=== PATIENT | female | born 1940 | race Caucasian/White ===

== ENCOUNTER 2016-09-27 09:33 | Outpatient (CLI) | payer MEDICARE, OTHER ==
[2015-04-17 10:58] VITALS: BP 152/76
[2016-09-27 09:48] LABS: BASOPHILS % 0.4 (0.0-1.5); EOSINOPHILS % 1.1 % (0.0-6.8); MEAN CORPUSCULAR HEMOGLOBIN 30.3 pg (28.0-34.0); MONOCYTES % 5.4 % (0.0-11.0); NEUTROPHILS # 6.9 # k/uL (1.4-7.7)
[2016-09-27 10:14] LABS: eGFR (African) > 60; eGFR (Non-African) > 60
== END 2016-09-27 09:34 ==
LOC: LAB 09:33
PROVIDERS: ATTEND Family Medicine
DX: I10 Essential (primary) hypertension (principal); E78.00 Pure hypercholesterolemia, unspecified
CPT/HCPCS: 36415; 80053; 80061; 85025

== ENCOUNTER 2016-10-08 14:18 | Outpatient (CLI) | payer MEDICARE, OTHER ==
[2015-04-17 10:58] VITALS: BP 152/76
== END 2016-10-08 14:20 ==
LOC: POD 14:18
PROVIDERS: ATTEND Podiatrist
DX: B35.1 Tinea unguium (principal); M79.674 Pain in right toe(s); M79.675 Pain in left toe(s); L84 Corns and callosities
CPT/HCPCS: 11721; G0463

== ENCOUNTER 2016-10-11 09:30 | Outpatient (CLI) | payer MEDICARE, OTHER ==
[2015-04-17 10:58] VITALS: BP 152/76
--- NOTE | 2016-10-12 10:54 | OP Clinic Progress Note ---
REFERRING PHYSICIAN: Dr. Rah Gloria REASON FOR VISIT: Shirlene Hatch returns for follow up of seronegative rheumatoid arthritis. She is now 75. I have been following her for the past 3 years. She tells me she is doing well. She is not having any significant joint swelling, warmth, tenderness, or pain. She has had no new medical problems. Morning stiffness is less than 15 minutes and pain maybe 1 to 2 over 10 in the hands and lower back. PAST MEDICAL HISTORY: 1. Hypertension. 2. Peptic ulcer disease. 3. Clinical nervous breakdown. 4. Hysterectomy. PRESENT MEDICATIONS: 1. Prednisone 2.5 mg twice a day. 2. Sertraline 20 mg daily. 3. Lisinopril 5 mg daily. 4. Haldol 5 mg daily. ALLERGIES: She reports allergies to penicillin. SOCIAL HISTORY: No smoking. No drinking. FAMILY HISTORY: Family history is negative from a rheumatological point of view. REVIEW OF SYSTEMS: No fevers, chills, sweats, chest pain, shortness of breath, cough, wheezing, nausea, vomiting and diarrhea. PHYSICAL EXAMINATION: GENERAL: She looks well. VITAL SIGNS: Weight: 171. Height: 5 feet 4 inches. BP: 130/60, P: 70, T: 97. HEENT: Grossly unremarkable. LUNGS: Clear bilaterally with no crackles or wheezing. HEART: Regular rhythm. ABDOMEN: Soft and nontender. VASCULAR: No edema or cyanosis. PERIPHERAL JOINTS: Changes of OA to the DIPs and PIPs but no tenderness or deformities. She has no synovitis at the MCPs, wrists, elbows, shoulder, hips, knees, ankles and feet. She is using a cane but otherwise her gait is non- antalgic. DIAGNOSTIC STUDIES: Review of past data also shows she had labs on September 27 which was unremarkable with a normal CBC and CMP. IMPRESSION: 1. Seronegative rheumatoid arthritis, doing well. 2. Osteoarthritis, stable. PLAN: 1. We will continue her present medications. I refilled her prednisone 2.5 mg twice a day. 2. I will see her back in 6 months. cc: Dr. Rah BULLARD
== END 2016-10-11 09:32 ==
LOC: RHEU 09:30
PROVIDERS: ATTEND Internal Medicine
DX: M06.09 Rheumatoid arthritis without rheumatoid factor, multiple sites (principal); I10 Essential (primary) hypertension
CPT/HCPCS: 99213; G0463

== ENCOUNTER 2016-12-13 14:22 | Outpatient (CLI) | payer MEDICARE, OTHER ==
[2015-04-17 10:58] VITALS: BP 152/76
== END 2016-12-13 14:33 ==
LOC: POD 14:22
PROVIDERS: ATTEND Podiatrist
DX: L89.891 Pressure ulcer of other site, stage 1 (principal)
CPT/HCPCS: 97597; G0463

== ENCOUNTER 2017-01-03 13:20 | Outpatient (CLI) | payer MEDICARE, OTHER ==
[2015-04-17 10:58] VITALS: BP 152/76
== END 2017-01-03 13:21 ==
LOC: POD 13:20
PROVIDERS: ATTEND Podiatrist
DX: M20.42 Other hammer toe(s) (acquired), left foot (principal); L89.891 Pressure ulcer of other site, stage 1
CPT/HCPCS: G0463

== ENCOUNTER 2017-01-17 14:05 | Outpatient (CLI) | payer MEDICARE, OTHER ==
[2015-04-17 10:58] VITALS: BP 152/76
== END 2017-01-17 14:06 ==
LOC: POD 14:05
PROVIDERS: ATTEND Podiatrist
DX: L89.891 Pressure ulcer of other site, stage 1 (principal); M20.42 Other hammer toe(s) (acquired), left foot
CPT/HCPCS: G0463

== ENCOUNTER 2017-01-27 13:34 | Outpatient (CLI) | payer MEDICARE, OTHER ==
[2015-04-17 10:58] VITALS: BP 152/76
[2017-01-27 14:22] LABS: eGFR (African) > 60; eGFR (Non-African) > 60
== END 2017-01-27 13:35 ==
LOC: LAB 13:34
PROVIDERS: ATTEND Family Medicine
DX: I10 Essential (primary) hypertension (principal); D51.9 Vitamin B12 deficiency anemia, unspecified
CPT/HCPCS: 36415; 80048; 82607

== ENCOUNTER 2017-01-29 09:27 | Outpatient (CLI) | payer MEDICARE, OTHER ==
[2015-04-17 10:58] VITALS: BP 152/76
--- NOTE | 2017-01-29 13:43 | OP Clinic Progress Note ---
REASON FOR VISIT: This 76-year-old lady has severe bilateral hearing loss. She wears a hearing aid in the right ear. She has a disequilibrium history. With otoscopy, the left ear has a marked posterior collapse of the eardrum with a bony erosion. Anteriorly, the eardrum is intact. There is a significant amount of debris built up. There is a tiny 1 mm area of bone exposure in the posterior retraction pocket or transcanal endaural-type of mastoidectomy. The history is not clear in that regard. With tuning forks, every one of the attempts with a 512 tuning fork refers to the right ear, including on the left mastoid. 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 There was a significant amount of debris in that cavity and I cleaned it. In the right ear, there is a perforation in the posterior superior quadrant. It is wet and moist with some granulation tissue and I can see a metal prosthesis in that superior posterior quadrant. There is somewhat like a point lay ira ribbon stapes-type of prosthesis. A significant amount of debris and skin are cleaned from the right ear. Ciloxan Drops were lavaged. PLAN: With the ability of the patient, both with hearing and with her schizophrenia, she should begin to develop a plan for aural hygiene. It will take a little bit of time. I have asked her to use some Ciloxan drops in the right ear just once a day and I will recheck her in 2 weeks. I plan to be progressively trying to get the ear canals a little healthier. Specifically for the right ear , if it has gotten healthier and there is less debris in the ear, it will allow her to hear better with the hearing aid. Currently, I do not believe either ear needs surgery. cc: Dr. Rah BULLARD
== END 2017-01-29 09:30 ==
LOC: ENT 09:27
PROVIDERS: ATTEND Otolaryngology
DX: H90.5 Unspecified sensorineural hearing loss (principal); F20.9 Schizophrenia, unspecified
CPT/HCPCS: G0463

== ENCOUNTER 2017-02-12 14:39 | Outpatient (CLI) | payer MEDICARE, OTHER ==
[2015-04-17 10:58] VITALS: BP 152/76
--- NOTE | 2017-02-16 10:36 | OP Clinic Progress Note ---
REASON FOR VISIT: Shirlene is seen in follow up of bilateral mastoid ear cleanings. She has used Ciloxan drops. Symptomatically, she both hears better and has had less pressure and discomfort in both ears. Both ears remain significantly improved. There is no drainage. PLAN: I did not see the need to debride and clean the ears today. I suggested that she use the drops less frequently at 2 or 3 drops in both ears once a week. I will see her back in about 6 weeks and check on the progress and see if the ears remain clean or whether they will need additional debridement. cc: Dr. Rah BULLARD
== END 2017-02-12 14:40 ==
LOC: ENT 14:39
PROVIDERS: ATTEND Otolaryngology
DX: H91.93 Unspecified hearing loss, bilateral (principal)
CPT/HCPCS: G0463

== ENCOUNTER 2017-02-14 13:38 | Outpatient (CLI) | payer MEDICARE, OTHER ==
[2015-04-17 10:58] VITALS: BP 152/76
== END 2017-02-14 13:40 ==
LOC: POD 13:38
PROVIDERS: ATTEND Podiatrist
DX: L89.892 Pressure ulcer of other site, stage 2 (principal)
CPT/HCPCS: G0463

== ENCOUNTER 2017-03-14 13:38 | Outpatient (CLI) | payer MEDICARE, OTHER ==
[2015-04-17 10:58] VITALS: BP 152/76
== END 2017-03-14 13:40 ==
LOC: POD 13:38
PROVIDERS: ATTEND Podiatrist
DX: B35.1 Tinea unguium (principal); M79.674 Pain in right toe(s); M79.675 Pain in left toe(s)
CPT/HCPCS: 11721; G0463

== ENCOUNTER 2017-03-26 13:39 | Outpatient (CLI) | payer MEDICARE, OTHER ==
[2015-04-17 10:58] VITALS: BP 152/76
--- NOTE | 2017-03-27 09:54 | OP Clinic Progress Note ---
REASON FOR VISIT: This 76-year-old lady is seen with bilateral ear canal and hearing losses. The left ear has got a modified radial mastoidectomy by erosion. The right ear has a hearing aid. The eardrum appears to be intact. The hearing aid itself is burrowing a hole in the ear canal. Under the microscope, I debrided and cleaned both ears. I picked squamous debris out of the bone of the ear canal sucked some particles out of it. Triple antibiotic ointment is applied in this. PLAN: Overall, there is improvement in both ears. Progressively, there is a little life coming back into the skin of the ear canal tissues and in the mastoid cavity in the left ear. The plan for the current period of time is to intermittently debride the ears perhaps once a month and try to restore some of the health of the tissue of the ear canals and simply see how far we get. I do not think drops are really going to particularly help at this level, but simply intermittent debridement. I will see her back in about a month. She does feel like she is able to hear better and the hearing aid functions better on that right side and she has less ear aching and overall sees some improvement that she is not quite able to verbalize. cc: Dr. Rah BULLARD
== END 2017-03-26 13:40 ==
LOC: ENT 13:39
PROVIDERS: ATTEND Otolaryngology
DX: H91.93 Unspecified hearing loss, bilateral (principal)
CPT/HCPCS: 69210; G0463

== ENCOUNTER → 2017-04-11 | Outpatient (CLI) | payer MEDICARE, OTHER ==
[2015-04-17 10:58] VITALS: BP 152/76
--- NOTE | 2017-04-11 11:13 | OP Clinic Progress Note ---
REASON FOR VISIT: Shirlene Hatch returns for follow up on her seronegative rheumatoid arthritis of multiple joints. She is doing well. She is not having any significant joint swelling, warmth, tenderness, morning stiffness, or pain. No new deformities. She did fall at home but did not injure herself. She has done remarkably well on low-dose prednisone 2.5 mg twice a day. PAST MEDICAL HISTORY: 1. Hypertension. 2. Peptic ulcer disease. 3. Hysterectomy. MEDICATIONS: 1. Prednisone 2.5 mg twice a day. 2. Sertraline 100 mg daily. 3. Lisinopril 5 mg daily. 4. Haldol 5 mg daily. ALLERGIES: Penicillin. SOCIAL HISTORY: No smoking. No drinking. REVIEW OF SYSTEMS: No fevers, chills, sweats, chest pain, shortness of breath, cough, wheezing, nausea, vomiting, diarrhea, numbness or tingling of extremities, skin rashes or nodules. PHYSICAL EXAMINATION: GENERAL: On exam, she looks well. VITAL SIGNS: Weight: 172. T: 96.9, R: 20, heart rate of 77, BP: 140/60. HEENT: Grossly unremarkable. LUNGS: Clear. HEART: Regular rhythm. ABDOMEN: Soft. VASCULAR: No edema or cyanosis. SKIN: No synovitis at the DIPs, PIPs, MCPs, wrists, elbows, shoulders, hips, knees, ankles, and feet. IMPRESSION: Seronegative rheumatoid arthritis. Doing well. PLAN: Continue present regimen. No need for labs today. I will see her back in 6 months. Thank you very much. cc: Dr. Rah BULLARD
== END ==
LOC: RHEU 08:40
PROVIDERS: ATTEND Internal Medicine
DX: M06.09 Rheumatoid arthritis without rheumatoid factor, multiple sites (principal)
CPT/HCPCS: 99214; G0463

== ENCOUNTER 2017-04-16 09:31 | Outpatient (CLI) | payer MEDICARE, OTHER ==
[2015-04-17 10:58] VITALS: BP 152/76
--- NOTE | 2017-04-16 15:21 | OP Clinic Progress Note ---
REASON FOR VISIT: Shirlene is a 76-year-old lady seen in follow up of bilateral severe problems with otitis externa, Eustachian tube dysfunction, and bilateral ear cholesteatomas. She is seen mostly for maintenance. She wears hearing aids and she has infected debris in her attic retraction pockets in both ears. These have been repetitively cleaned. Progressively, there is less ulceration. There is less granulation tissue and there is less dried purulence. The patient has enough clinical hearing loss that she is still going to need to continue using the hearing aids, although certainly, continues to be part of the disease process. Under the microscope, both ears were debrided and cleaned with MicroPicks. Some bacitracin ointment was placed and I placed Ciloxan drops in addition. PLAN: Patient will return in 1 month. I will try to work with her next time to see if she might be able to begin some low level of care for the ears, such as putting a type of ear drop in the ears. In a way, it is almost impossible to cure the problem on a permanent basis secondary to the patient needing the hearing aids and these contributing to smouldering chronic infection in the cholesteatoma pockets. She will still need some intermittent debridement and care under a microscope. cc: Dr. Rah BULLARD
== END 2017-04-16 09:40 ==
LOC: ENT 09:31
PROVIDERS: ATTEND Otolaryngology
DX: H91.93 Unspecified hearing loss, bilateral (principal); H71.93 Unspecified cholesteatoma, bilateral
CPT/HCPCS: 69220

== ENCOUNTER 2017-05-21 10:41 | Outpatient (CLI) | payer MEDICARE, OTHER ==
[2015-04-17 10:58] VITALS: BP 152/76
--- NOTE | 2017-05-22 13:51 | OP Clinic Progress Note ---
REASON FOR VISIT: This 76-year-old lady is seen with bilateral ear canal infections, otitis media , and a profound hearing loss. She has no hearing at all in her left ear by history. The left ear particularly had had several surgeries. I have debrided and cleaned these ears under the microscope several times and each time the ears have progressively improved the scabs, crusts, and exudates. Today, the perforation in the right ear with the prosthesis lying in it still remains much venetian blind cleaner. Initially, it had brown, gooey, gummy debris. The progressive debridement and cleanings and medications placed have progressively improved the milieu and I did that again today. The left ear also is improved. There are more cholesteatomatous, gummy, gooey changes in the posterior superior eroded retraction. Again, that is significantly improved with just much less debris and crusting. PLAN: The general aim is to progressively try to improve the general milieu in both ears. They need some physical debridement, I do not really believe drops will sufficiently rinse and clean these. The general milieu can continue to be improved with debridement and we will progressively expand the intervisit time length. It was a month last time and I will make it 6 weeks this time and hopefully, continue to improve the erosive milieu in both ears. She uses a hearing aid in the right ear. There is a bony exudate where it has rubbed. I re-picked some bone out of this and replaced antibiotic ointment over it. This site is slowly improving and there is starting to be a little skin over some of that raw bone and the overall bony eroded ulcer site has improved in the right ear canal where the hearing aid pressure eroded it. cc: Dr. Rah BULLARD
== END 2017-05-21 10:42 ==
LOC: ENT 10:41
PROVIDERS: ATTEND Otolaryngology
DX: H71.93 Unspecified cholesteatoma, bilateral (principal); H91.92 Unspecified hearing loss, left ear; H91.8X1 Other specified hearing loss, right ear
CPT/HCPCS: 69220; G0463

== ENCOUNTER 2017-06-03 10:40 | Outpatient (CLI) | payer MEDICARE, OTHER ==
[2015-04-17 10:58] VITALS: BP 152/76
== END 2017-06-03 10:50 ==
LOC: CARD 10:40
PROVIDERS: ATTEND Internal Medicine Cardiovascular Disease
DX: R00.8 Other abnormalities of heart beat (principal); R07.9 Chest pain, unspecified; I35.0 Nonrheumatic aortic (valve) stenosis; I10 Essential (primary) hypertension; E78.5 Hyperlipidemia, unspecified
CPT/HCPCS: G0463

== ENCOUNTER 2017-07-08 10:42 | Outpatient (CLI) | payer MEDICARE, OTHER ==
[2015-04-17 10:58] VITALS: BP 152/76
== END 2017-07-08 10:43 ==
LOC: CARD 10:42
PROVIDERS: ATTEND Internal Medicine Cardiovascular Disease
DX: R07.9 Chest pain, unspecified (principal); I35.0 Nonrheumatic aortic (valve) stenosis; I10 Essential (primary) hypertension; E78.5 Hyperlipidemia, unspecified
CPT/HCPCS: G0463

== ENCOUNTER 2017-07-09 13:59 | Outpatient (CLI) | payer MEDICARE, OTHER ==
[2015-04-17 10:58] VITALS: BP 152/76
--- NOTE | 2017-07-14 14:37 | OP Clinic Progress Note ---
REASON FOR VISIT: This 76-year-old lady is seen accompanied by her son. She has had bilateral stapes surgery. She also has otitis media and bilateral perforations. Although I do not have an audiogram by history, her left ear is a ear and does not hear. She wears a hearing aid in the right ear. It is a tight- fitting mold with the transmitter over and behind the ear. One of the issues is a bone ulceration in the lateral part of the ear canal on the bony part. The general concept is that it is a pressure ulcer from the deep portion of the hearing aid mold. This is debrided and cleaned and again, I picked bony spicules out of it and there is a squamous ulceration with squamous debris in it. Nevertheless, it is cooker cleaner than it used to be. Similarly, deeper in the ear on the right side, although the prosthesis is lying fallow in a large posterior perforation in the posterior third of the eardrum, currently I do not see active infection or drainage and that too is a generalized improvement. The skin of the ear canal is hard, dense, and packed in. I debrided and cleaned skin from around in the ear canal making this generally healthier. Clotrimazole lotion is placed over this area. In regards to the right ear, she and her will talk with "Gonzalez" from [facility] in [place] to see if the mold of the right ear hearing aid might be changed with less pressure in the inferior aspect. The left ear is debrided and cleaned. There is less squamous debris in the posterior/superior quadrant. It is almost less of a cholesteatoma this time than some squamous desquamation in the very posterior aspect in the attic that is not growing squamous cholesteatoma as it had been previously. There is a small amount of yellowish infection that has crystalized and this is all picked off and cleaned with very fine picks. Generally, this has improved. I put some Clotrimazole lotion on this area to help keep this cooker cleaner. PLAN: Shirlene and her son will visit with the hearing aid dealer, "Gonzalez," of [email or web address] in [place], [place]. I do not think drops really are going to significantly improve anything in either ear. I will reevaluate the issues in about 4 months. Overall, the general health of both ear canals and middle ears is fairly significantly improved. cc: Dr. Rah BULLARD
== END 2017-07-09 14:00 ==
LOC: ENT 13:59
PROVIDERS: ATTEND Otolaryngology
DX: H60.93 Unspecified otitis externa, bilateral (principal); H66.93 Otitis media, unspecified, bilateral; H72.93 Unspecified perforation of tympanic membrane, bilateral
CPT/HCPCS: G0463

== ENCOUNTER 2017-07-18 14:00 | Outpatient (CLI) | payer MEDICARE, OTHER ==
[2015-04-17 10:58] VITALS: BP 152/76
== END 2017-07-18 14:02 ==
LOC: POD 14:00
PROVIDERS: ATTEND Podiatrist
DX: L89.891 Pressure ulcer of other site, stage 1 (principal); M20.42 Other hammer toe(s) (acquired), left foot
CPT/HCPCS: G0463

== ENCOUNTER 2017-08-01 14:05 | Outpatient (CLI) | payer MEDICARE, OTHER ==
[2015-04-17 10:58] VITALS: BP 152/76
== END 2017-08-01 14:06 ==
LOC: POD 14:05
PROVIDERS: ATTEND Podiatrist
DX: L89.891 Pressure ulcer of other site, stage 1 (principal); M20.42 Other hammer toe(s) (acquired), left foot
CPT/HCPCS: G0463

== ENCOUNTER 2017-08-27 13:20 | Outpatient (CLI) | payer MEDICARE, OTHER ==
[2015-04-17 10:58] VITALS: BP 152/76
--- NOTE | 2017-09-01 09:10 | OP Clinic Progress Note ---
REASON FOR VISIT: This 76-year-old lady is seen sequentially for debriding and cleaning her ear canal on the right side which has a large bone exposure where her hearing aid gouges an ulcer. I have debrided and cleaned this ulcer several times under the microscope. This has reduced the size of the ulcer and the amount of inflammation. I discussed with the patient numerous times and with her son the last time that she needs to have the tip of the hearing aid changed or modified or altered to keep the pressure off on that right side. Their are simply working on this issue. On the left ear, she has some scabby and crustiness that comes from the totally eroded left eardrum. They are irregular areas that simply need to be debrided and cleaned and this was done under the microscope. Overall, there is generalized improvement. PLAN: I will see her back in about 3 months to re-debride and clean. I am lengthening the time between debridements and cleanings. cc: Dr. Rah BULLARD
== END 2017-08-27 13:21 ==
LOC: ENT 13:20
PROVIDERS: ATTEND Otolaryngology
DX: H60.93 Unspecified otitis externa, bilateral (principal)
CPT/HCPCS: 69220; G0463

== ENCOUNTER 2017-09-05 09:54 | Outpatient (CLI) | payer MEDICARE, OTHER ==
[2015-04-17 10:58] VITALS: BP 152/76
--- NOTE | 2017-09-10 11:27 | OP Clinic Progress Note ---
REASON FOR VISIT: Shirlene Hatch returns for follow up of seronegative rheumatoid arthritis of multiple joints with no organ involvement. She is not doing as well as she did 6 months ago. She is having 30 minutes of morning stiffness. She is having a little discomfort in her wrists. She had an episode of significant left hip pain, but that has resolved. Otherwise, she is doing well with activities of daily living. She uses a cane. She has had no falls. PAST MEDICAL HISTORY: 1. Hypertension. 2. Peptic ulcer disease. 3. Hysterectomy. 4. Seronegative rheumatoid arthritis. MEDICATIONS: 1. Prednisone 2.5 mg twice a day.2 2. Sertraline 100 mg daily. 3. Lisinopril 5 mg daily. 4. Haldol 5 mg. ALLERGIES: Penicillin. REVIEW OF SYSTEMS: Otherwise, no fevers, chills, sweats, chest pain, shortness of breath, cough, wheezing, nausea, or vomiting. No nodules. No skin rashes. No color changes in hands or feet in the cold. PHYSICAL EXAMINATION: VITAL SIGNS: T: 97, R: 20, heart rate 80, BP: 145/65. HEENT: Sclerae are anicteric. Conjunctivae are pink. No stomatitis or glossitis. LUNGS: Clear bilaterally with no crackles or wheezing. HEART: Regular rhythm. ABDOMEN: Soft and nontender. SKIN: No rashes or nodules. PERIPHERAL JOINTS: She has some tenderness at the MCPs, but both wrists are swollen, tender, with decreased flexion and extension. Sizing Machine Operator strength is 4/5. Elbows and shoulders are unremarkable. Hips, knees, ankles, and feet are unremarkable. IMPRESSION: Seronegative rheumatoid arthritis of multiple sites. Doing worse. PLAN: 1. I am going to keep her on a regimen of prednisone 2.5 mg twice a day but I am adding Plaquenil 200 mg twice a day. 2. We will update her labs with a CBC, CMP, sedimentation rate, and CRP. I am repeating a rheumatoid factor. 3. I will see her back in 2 months. cc: Dr. Rah BULLARD
== END 2017-09-05 13:21 ==
LOC: RHEU 09:54
PROVIDERS: ATTEND Internal Medicine
DX: M06.89 Other specified rheumatoid arthritis, multiple sites (principal)
CPT/HCPCS: 99214; G0463

== ENCOUNTER 2017-09-08 07:51 | Outpatient (CLI) | payer MEDICARE, OTHER ==
[2015-04-17 10:58] VITALS: BP 152/76
[2017-09-08 08:19] LABS: BASOPHILS % 0.5 (0.0-1.5); EOSINOPHILS % 1.6 % (0.0-6.8); MEAN CORPUSCULAR HEMOGLOBIN 29.1 pg (28.0-34.0); MONOCYTES % 5.8 % (0.0-11.0); NEUTROPHILS # 5.7 # k/uL (1.4-7.7)
[2017-09-08 08:42] LABS: eGFR (African) > 60; eGFR (Non-African) > 60
== END 2017-09-08 07:52 ==
LOC: LAB 07:51
PROVIDERS: ATTEND Internal Medicine
DX: M06.09 Rheumatoid arthritis without rheumatoid factor, multiple sites (principal); Z79.899 Other long term (current) drug therapy
CPT/HCPCS: 36415; 80053; 85025; 85651; 86140; 86431

== ENCOUNTER 2017-09-09 13:44 | Outpatient (CLI) | payer MEDICARE, OTHER ==
[2015-04-17 10:58] VITALS: BP 152/76
== END 2017-09-09 13:45 ==
LOC: POD 13:44
PROVIDERS: ATTEND Podiatrist
DX: L89.891 Pressure ulcer of other site, stage 1 (principal); M20.42 Other hammer toe(s) (acquired), left foot
CPT/HCPCS: G0463

== ENCOUNTER 2017-09-23 14:25 | Outpatient (CLI) | payer MEDICARE, OTHER ==
[2015-04-17 10:58] VITALS: BP 152/76
== END 2017-09-23 14:26 ==
LOC: POD 14:25
PROVIDERS: ATTEND Podiatrist
DX: L89.891 Pressure ulcer of other site, stage 1 (principal); M20.42 Other hammer toe(s) (acquired), left foot
CPT/HCPCS: G0463

== ENCOUNTER 2017-10-21 13:42 | Outpatient (CLI) | payer MEDICARE, OTHER ==
[2015-04-17 10:58] VITALS: BP 152/76
== END 2017-10-21 13:44 ==
LOC: POD 13:42
PROVIDERS: ATTEND Podiatrist
DX: L89.891 Pressure ulcer of other site, stage 1 (principal); M20.42 Other hammer toe(s) (acquired), left foot
CPT/HCPCS: G0463

== ENCOUNTER 2017-11-07 11:09 | Outpatient (CLI) | payer MEDICARE, OTHER ==
[2015-04-17 10:58] VITALS: BP 152/76
--- NOTE | 2017-11-10 10:50 | OP Clinic Progress Note ---
HISTORY OF PRESENT ILLNESS: Shirlene Hatch returns for follow up of seronegative rheumatoid arthritis of multiple sites. She is doing a lot better than when I last saw her. She has no pain. No joint stiffness. Note her last blood work, her rheumatoid factor was 11, i.e. negative. Her sedimentation rate was up to 53. CBC and CMP were normal. No new medical problems and no fevers, chills, sweats, chest pain, shortness of breath, cough, wheezing, nausea, vomiting, or diarrhea. She is tolerating Plaquenil well with no vision changes. PAST MEDICAL HISTORY: 1. Hypertension. 2. Peptic ulcer disease. 3. Hysterectomy. 4. Seronegative rheumatoid arthritis. PRESENT MEDICATIONS: 1. Prednisone 2.5 mg twice a day. 2. Sertraline 100 mg daily. 3. Lisinopril 5 mg daily. 4. Haldol 5 mg daily. 5. Plaquenil 200 mg twice a day. ALLERGIES: Penicillin. REVIEW OF SYSTEMS: As per HPI. PHYSICAL EXAMINATION: GENERAL: She looks well. VITAL SIGNS: Height: 5 feet 4 inches. Weight: 162. T: 96.9, R: 20, heart rate 76, BP: 140/70. HEENT: Grossly unremarkable except for diffuse Alopecia. LUNGS: Clear with no crackles or wheezing. HEART: Regular rate and rhythm. ABDOMEN: Soft and nontender. VASCULAR: No edema or cyanosis. PERIPHERAL JOINTS: No synovitis at the DIPs, PIPs, MCPs, wrists, elbows, shoulders, hips, knees, ankles, and feet. She does use a cane but, otherwise, her gait is non-antalgic. IMPRESSION: Seronegative rheumatoid arthritis of multiple sites, improved. PLAN: 1. Continue prednisone 2.5 mg twice a day and Plaquenil 200 mg twice a day. 2. I will see her back in 6 months. At that time, I will make arrangements for an eye exam for toxin alert toxicity screening. Thank you very much. Best regards, cc: Dr. Rah BULLARD
== END 2017-11-07 12:29 ==
LOC: RHEU 11:09
PROVIDERS: ATTEND Internal Medicine
DX: M06.9 Rheumatoid arthritis, unspecified (principal)
CPT/HCPCS: 99214; G0463

== ENCOUNTER 2017-11-25 14:08 | Outpatient (CLI) | payer MEDICARE, OTHER ==
[2015-04-17 10:58] VITALS: BP 152/76
== END 2017-11-25 14:10 ==
LOC: POD 14:08
PROVIDERS: ATTEND Podiatrist
DX: L89.891 Pressure ulcer of other site, stage 1 (principal); M20.42 Other hammer toe(s) (acquired), left foot
CPT/HCPCS: G0463

== ENCOUNTER 2017-12-03 13:24 | Outpatient (CLI) | payer MEDICARE, OTHER ==
[2015-04-17 10:58] VITALS: BP 152/76
--- NOTE | 2017-12-03 14:46 | OP Clinic Progress Note ---
REASON FOR VISIT: Shirlene is seen in follow up of sequentially debriding and cleaning her ears. She wears a hearing aid in her right ear. Both ears have atelectatic eardrums with squamous debris down in the posterior superior quadrants along with the ear canal. I debrided both ears in the mastoid cavity with fine picks and microscope. Neosporin ointment was placed. PLAN: Sequentially, I will see her back in about 5 months. cc: Dr. Rah BULLARD
== END 2017-12-03 13:25 ==
LOC: ENT 13:24
PROVIDERS: ATTEND Otolaryngology
DX: H66.93 Otitis media, unspecified, bilateral (principal)
CPT/HCPCS: 69220; G0463

== ENCOUNTER 2018-01-02 12:36 | Outpatient (CLI) | payer MEDICARE, OTHER ==
[2015-04-17 10:58] VITALS: BP 152/76
== END 2018-01-02 12:41 ==
LOC: POD 12:36
PROVIDERS: ATTEND Podiatrist
DX: L89.891 Pressure ulcer of other site, stage 1 (principal); M20.42 Other hammer toe(s) (acquired), left foot
CPT/HCPCS: G0463

== ENCOUNTER 2018-01-20 09:31 | Outpatient (CLI) | payer MEDICARE, OTHER ==
[2015-04-17 10:58] VITALS: BP 152/76
== END 2018-01-20 09:33 ==
LOC: LAB 09:31
PROVIDERS: ATTEND Family Medicine
DX: E78.00 Pure hypercholesterolemia, unspecified (principal)
CPT/HCPCS: 36415; 80061

== ENCOUNTER 2018-02-16 13:47 | Outpatient (CLI) | payer MEDICARE, OTHER ==
[2015-04-17 10:58] VITALS: BP 152/76
== END 2018-02-16 13:50 ==
LOC: POD 13:47
PROVIDERS: ATTEND Podiatrist Foot & Ankle Surgery
DX: S91.109A Unspecified open wound of unspecified toe(s) without damage to nail, initial encounter (principal); X58.XXXA Exposure to other specified factors, initial encounter
CPT/HCPCS: 11042

== ENCOUNTER 2018-03-18 12:58 | Outpatient (CLI) | payer MEDICARE, OTHER ==
[2015-04-17 10:58] VITALS: BP 152/76
--- NOTE | 2018-03-20 13:12 | OP Clinic Progress Note ---
SUBJECTIVE: Patient is a 77-year-old female who presented to the clinic today for follow up of a left 3rd toe ulceration. The patient states that she has been applying triple antibiotic ointment and a Band-Aid and using a Crest pad daily since her last visit. The patient admits continue pain on the left 3rd toe with ambulation to and from the shower. The patient denies any fevers, chills, nausea, vomiting, shortness of breath, or chest pain at this time. The patient has no other concerns or questions at this time. OBJECTIVE: Vascular Exam: There is 2+ DP and PT pulses of the left foot. Capillary refill time was less than 3 seconds to the toes of the left foot. No edema. Dermatologic Exam: The patient has evidence of a small hyperkeratosis over the distal aspect of the left 3rd toe. There is no erythema. This was debrided to look for any signs of an open ulceration underneath the callus. It appears that the patient has epithelized over the previous wound completely and has evidence of a small amount of red tissue underneath where healing is continuing. As the wound has completely healed over, however, at this time, and keeping in mind that it is very fragile skin, the plan is to have the patient continue in close follow up to make sure it stays healed. There is no other erythema or hyperkeratosis about the left foot. There is a small hyperkeratosis noted, however, under the first metatarsal head which we have been watching and it is very slowly progressive. Musculoskeletal Exam: There is very mild pain on palpation if any noted to the left 3rd toe distal tip. There is digital contracture noted at the left 2nd and 3rd and 4th toes with contracture of the metatarsophalangeal joint, as well as plantar flexor contraction at the proximal interphalangeal joint and at the distal interphalangeal joint. There are no other gross abnormalities noted to the left foot. Neurological Exam: Light touch sensation is intact to the left foot and toes. ASSESSMENT: 1. Left toe wound, open. 2. Abrasion wound of left 3rd toe. 3. Hyperkeratosis of left 3rd toe. PROCEDURE: Paring of hyperkeratotic lesion of left 3rd toe without incident with a sharp #15 blade. This was debrided down to the level of intact fragile skin with no open wound at this time. The wound is healing well. PLAN: The patient does not demonstrate any evidence of infection at this time. The wound appears to have healed beautifully, however, with evidence of very fragile skin at this time, the patient will continue utilizing the antibiotic ointment and a Band-Aid, as well as a Crest pad for the next 2 weeks. We will monitor closely and see her again in 2 weeks in the outpatient clinic to make sure it has healed and stays healed completely. We also discussed the possibility of surgery to straighten the toes to prevent further callus or ulceration versus conservative management and definitively utilizing the Crest pad and occasional callus debridement. The patient elects to go forward with conservative treatment at this time and we will see her in 2 weeks. She will return to the office sooner if any problems. cc: Dr. Rah BULLARD
== END 2018-03-18 13:00 ==
LOC: POD 12:58
PROVIDERS: ATTEND Podiatrist Foot & Ankle Surgery
DX: M79.672 Pain in left foot (principal); S90.415D Abrasion, left lesser toe(s), subsequent encounter; X58.XXXD Exposure to other specified factors, subsequent encounter; L57.0 Actinic keratosis
CPT/HCPCS: 11055

== ENCOUNTER 2018-04-01 12:41 | Outpatient (CLI) | payer MEDICARE, OTHER ==
[2015-04-17 10:58] VITALS: BP 152/76
--- NOTE | 2018-04-03 11:14 | OP Clinic Progress Note ---
SUBJECTIVE: Shirlene Hatch is a 77-year-old female who presents today for follow up of left 3rd toe previous wound that was healed with fragile skin at her last appointment on March 18, 2018. This patient has been continuing to apply a Band-Aid and utilizing a CREST pad and a regular shoe with [employer] inserts in them. The patient presents today for follow up. The patient denies any fever, chills, nausea, vomiting, shortness of breath or chest pain at this time. OBJECTIVE: Vascular: There is 2+ DP and PT pulses of left foot. Capillary refill time is less than 3 seconds to the toes of the left foot. There is no edema of the left foot. Dermatologic: Left 3rd toe distal tip has evidence of hyperkeratosis with a central dark lesion. The hyperkeratosis was debrided with a #15 blade revealing an open wound underneath it measuring 0.3 x 0.1 x 0.1 cm deep. This is now a recurrent wound again, as the patient has had this reoccur before. This was healed previously and now is open. There was no erythema or drainage or purulence or malodor at this time or swelling to the left 3rd toe. Musculoskeletal: There is very minor pain on palpation noted to the left 3rd toe distal tip. There is an obvious distal contracture noted at toes #2 through #4 of the left foot, as well as the right foot, but worse on the left. The patient has no other gross abnormalities present at this time. Neurologic: Light touch sensation is definitely diminished or absent to the toes of the left foot. ASSESSMENT: 1. Open wound on left 3rd toe. 2. 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 3. Hyperkeratosis sub-first metatarsal head of left foot. PROCEDURE: Sharp debridement with a #15 blade was carried out on the left 3rd toe down to and including the level of the subcutaneous tissue. There was zero to very minimal bleeding present. It was controlled with pressure. Dressings were applied consisting of triple antibiotic ointment and a Band-Aid. The patient tolerated the procedure well. PLAN: Today, we discussed the concern that she had a healed wound at her last visit a couple of weeks ago and that despite conservative treatment with padding and protection, she has ulcerated this toe again. I am concerned that due to the recurrence of this wound in my care, as well as previous to my care, this patient will continue to have this problem unless more definitive surgical correction is performed. I discussed this with the patient and my desire to do our best to heal this wound again with aggressive treatment, with weekly visits, and possibly a surgical shoe if not improving at her next visit and I discussed with the patient that we may need to consider surgical correction to straighten the toe as needed at our next visit. The patient understands this and she says that she would like to wait until winter has come and gone and do it in the spring if possible. My concern is that she has a greater risk of infection with an open wound recurring, as well as possible need for toe amputation or worse if she does get a bad infection with an open wound. We will consider this more at her next appointment in a [id number] in the outpatient clinic on a Friday afternoon. The patient understands this and agrees with the plan going forward at this time. We may need to discuss this with the medical decision maker if she has one. cc: Dr. Rah BULLARD
== END 2018-04-01 12:43 ==
LOC: POD 12:41
PROVIDERS: ATTEND Podiatrist Foot & Ankle Surgery
DX: S91.105A Unspecified open wound of left lesser toe(s) without damage to nail, initial encounter (principal); M20.42 Other hammer toe(s) (acquired), left foot; L57.0 Actinic keratosis; X58.XXXA Exposure to other specified factors, initial encounter; Y93.9 Activity, unspecified; Y92.9 Unspecified place or not applicable; Y99.9 Unspecified external cause status
CPT/HCPCS: 11055; 99213; G0463

== ENCOUNTER 2018-05-08 10:03 | Outpatient (CLI) | payer MEDICARE, OTHER ==
[2015-04-17 10:58] VITALS: BP 152/76
--- NOTE | 2018-05-08 15:41 | OP Clinic Progress Note ---
REASON FOR VISIT: Shirlene Hatch returns for follow up of seronegative rheumatoid arthritis having presented with symmetrical joint pain and a sedimentation rate of 53 and a negative rheumatoid factor. She is doing pretty well but has noted some mild increased stiffness in the past month, mainly involving the hands and feet. Otherwise, no swelling or new deformity. Rest of the systems reviewed, no fevers, chills, sweats, chest pain, shortness of breath, cough, wheezing, nausea, vomiting, or diarrhea. No vision changes. No numbness or tingling of extremities. No nodules. No falls. PAST MEDICAL HISTORY: 1. Hypertension. 2. Peptic ulcer disease. 3. Hysterectomy. 4. Seronegative rheumatoid arthritis. PRESENT MEDICATIONS: 1. Prednisone 2.5 mg twice a day. 2. Plaquenil 200 mg twice a day. 3. Haldol 5 mg daily. 4. Lisinopril 5 mg daily. 5. Sertraline 100 mg daily. ALLERGIES: Penicillin. REVIEW OF SYSTEMS: As per HPI. PHYSICAL EXAMINATION: GENERAL: She looks well. VITAL SIGNS: Weight: 166. T: 98, R: 18, BP: 158/72, P: 95. HEENT: Grossly unremarkable. LUNGS: Clear bilaterally with no crackles or wheezing. HEART: Regular rate and rhythm. ABDOMEN: Soft and nontender. VASCULAR: No edema or cyanosis. PERIPHERAL JOINTS: Some changes of osteoarthritis. A little fullness at the MCPs and mild tenderness especially at #2 and #3 on the right. The wrists have some decreased flexion and extension, otherwise, no significant tenderness. Flash Designer strength is about 4/5. Elbows, hips, knees, ankles, and feet are unremarkable and no nodules are noted. IMPRESSION: Seronegative rheumatoid arthritis, stable. PLAN: 1. I am going to see her back in 4 months. 2. We will continue her present regimen. 3. She is to call us immediately if she should have any worsening symptoms. Thank you very much. Best regards, cc: Dr. Rah BULLARD
== END 2018-05-08 10:08 | disposition home or self-care (01) ==
LOC: RHEU 10:03
PROVIDERS: ATTEND Internal Medicine
DX: M06.09 Rheumatoid arthritis without rheumatoid factor, multiple sites (principal); I10 Essential (primary) hypertension
CPT/HCPCS: 99212; G0463

== ENCOUNTER 2018-07-01 14:45 | Outpatient (CLI) | payer MEDICARE, OTHER ==
[2015-04-17 10:58] VITALS: BP 152/76
--- NOTE | 2018-07-03 09:13 | OP Clinic Progress Note ---
SUBJECTIVE: Shirlene Hatch presents to clinic today for follow up of left 3rd toe wound. The patient had the wound debrided last week and was given a new set of larger, size large, Crest pads to try and offload the toe better. The patient states today that she is feeling much better and is having much less pain in the left 3rd toe at the tip, as well as anywhere on the toe, like she was having some pain previously all over. The patient does not admit to any fevers, chills, nausea, vomiting, shortness of breath or chest pain at this time. OBJECTIVE: VITAL SIGNS: T: 97.8 degrees Fahrenheit, heart rate: 64, R: 16, BP: 132/79. VASCULAR: There are 2+ DP and PT pulses bilaterally. Capillary refill time is less than 3 seconds to the toes bilaterally. No edema bilaterally. DERMATOLOGIC: There is hyperkeratosis noted about the left 3rd toe distal tip which was debrided to reveal intact epithelium. There is mild redness about the dorsal part of the left 3rd toe, but I believe this is due to irritation, as the wound is healing beautifully. The wound is completely healed at this time. There is mild hyperkeratosis noted about the sub 1st metatarsal head of the left foot which was left intact today, as it is very minor at this time. There are no other open lesions or hyperkeratosis noted of the left foot. MUSCULOSKELETAL: There is pain on palpation noted but it is very minimal to the left 3rd toe distal tip. This should go away over time now. There is a digital contracture noted about the proximal interphalangeal joint in a plantar flexion direction when the forefoot is loaded. I am unable to reduce this into a rectus toe with the forefoot loaded and therefore, I believe that she would require an osseous procedure in order to fix and straighten toe if ever needed. NEUROLOGIC: Light touch sensation is intact to the toes bilaterally. ASSESSMENT: 1. Skin ulcer of toe of the left foot with fat layer exposed. 2. Hammertoe of left foot. 3. Healed would. PROCEDURE #1: Sharp debridement with a #15 blade of hyperkeratotic lesion overlying a previous ulcer of the left 3rd toe distal tip. This was debrided with a #15 blade down to intact epithelium. The patient tolerated the procedure well. We still applied triple antibiotic ointment and a Band-Aid for precautionary sake today. The patient was instructed that she does not need to use antibiotic ointment and a Band-Aid going forward. She is to continue using the large Crest pads that she was given last week, however. The patient tolerated the procedure well. PLAN: The patient will be seen next week for a 1-week follow up to make sure she is still doing well with the Crest pad and still has a healed toe previous wound. The patient understands this and we will see her next week. I will call back her son, Raudel Hatch, and let him know the plan and if she happens to open this wound again, we may consider doing a small surgical procedure either in office to release a flexor tendon or a PIPJ arthroplasty in the OR. I will call and discuss this with him. The patient has no other questions at this time and plans to see me next week. cc: Dr. Rah BULLARD
== END 2018-07-01 15:03 ==
LOC: POD 14:45
PROVIDERS: ATTEND Podiatrist Foot & Ankle Surgery
DX: L97.521 Non-pressure chronic ulcer of other part of left foot limited to breakdown of skin (principal); M20.42 Other hammer toe(s) (acquired), left foot
CPT/HCPCS: 11045

== ENCOUNTER 2018-10-07 13:02 | Outpatient (CLI) | payer MEDICARE, OTHER ==
[2015-04-17 10:58] VITALS: BP 152/76
--- NOTE | 2018-10-08 17:28 | OP Clinic Progress Note ---
SUBJECTIVE: Shirlene Hatch is a 77-year-old female presenting for follow-up of a left third toe distal tip ulcer. She presents today with her son Raudel and his . I have been unable to reach Raudel but he states he received my message and has not been able to call back yet and came to the office instead today. The patient does not admit to any concerns at this time but the patient and family would like to try and avoid surgery if possible. The patient has been using her Crest pad to offload the toe. More information was received today from the family stating that she frequently due to a side effect from her haloperidol medicine is fidgety and will randomly lift up her left foot and rest it down on the ground so her toes are flat on the ground on the tips. They are concerned that this is not helping the situation and they worry that surgery may not fix the fact that she will continue to get pressure on the end of her toes. This is new information and makes sense. The patient does not admit to any fevers, chills, nausea, vomiting, shortness of breath or chest pain at this time. They are here to discuss any other options outside of surgery as well as surgical options to better understand the possibilities. OBJECTIVE: Vitals: No temperature was taken today. Heart rate 86, respiration rate 22, blood pressure 162/80. O2 saturation is 94% on room air. Pain level is 3/10. Vascular: 2+ DP and PT pulses, left foot. Capillary refill time is less than 3 seconds to the toes of the left foot. Capillary refill time is in fact immediate to the left second toe, and left third toe, even. There is no edema noted, left foot. Dermatologic: There is a hyperkeratotic lesion on the distal tip of the left third toe which was debrided today to reveal mostly intact epithelium. There is a very mild/small punctate area that is still barely open to subcutaneous tissue. It is overall very dry and there is no erythema noted, or purulence or malodor about the small wound. There are no other open lesions or concerning areas on the left foot. Musculoskeletal: There is digital deformity noted of the left second, third and fourth toes. They are dorsally contracted at the MPJ and plantar flexor contraction at the PIPJ and DIPJ specifically of the third toe, left foot. The patient has no pain on palpation noted on the tip of the toe. The patient is unable to obtain a straight rectus toe with the forefoot loaded as I try and extend at the DIPJ of the left third toe. I worry that this will not be fixed with just an FDL tenotomy. It may require an osseous procedure to either create a floppy toe or fuse that PIPJ. Neurologic: Light touch sensation is intact to the toes bilaterally. ASSESSMENT AND PLAN: 1. Skin ulcer of the toe of the left foot with fat layer exposed. 2. Hammertoe, left foot. 3. Healing wound. A long discussion was had regarding possibility of an arthroplasty versus an arthrodesis of the left third toe versus an outpatient clinic visit where we can numb up the toe and do an FDL tenotomy. The patient and her family were an active participant in our conversation with questions and concerns. All questions were answered appropriately and fully. The family would like to avoid surgery if at all possible. I told them that I had one other idea at this time and that is to look for a silicone toe sleeve that completely pads and covers the entire toe. I gave them what to look up online as well as a possible website that they may find it on. I also showed them a picture of what I am talking about on a visual picture on the phone. The patients family would like to try that out first and would also like to try doubling up on corn pads on the tip of the toe to try and take pressure off the toe even when she seems to lift up her foot and press her toes down on the tips as mentioned above. The patient will return to the clinic in 2-3 weeks and is encouraged to put antibiotic ointment and a Band-Aid daily as well as pads on that toe area. They know that I would like to get this healed up and I am hopeful that the silicone toe sleeve will be a huge help in clearing up this wound and then protecting it so that we can avoid surgery if at all possible. If we are unable to avoid surgery will consider more likely arthrodesis of the PIPJ of the left third toe in order to make sure that it is straight. There is concern that she will trip if she has a floppy toe as she seems to drag her feet when she walks. That is a valid concern so I think I would want to make sure that her toe is straight either with an arthroplasty with a K-wire to hold it straight and scar in that position or an arthrodesis since we already are using a K-wire and see if we can get the bone to fuse. There were no other questions by the patient or family at this time and we will see them in 2-3 weeks for follow-up. They know I will be out of town from the through the and will need to talk to their primary care doctor if any concerns or issues. Seven Hollis.P.M. (Dictated/Not Signed) Everette Job#: [id number] MTDD
== END 2018-10-07 13:04 ==
LOC: POD 13:02
PROVIDERS: ATTEND Podiatrist Foot & Ankle Surgery
DX: L97.521 Non-pressure chronic ulcer of other part of left foot limited to breakdown of skin (principal); L84 Corns and callosities; M20.42 Other hammer toe(s) (acquired), left foot; R26.2 Difficulty in walking, not elsewhere classified
CPT/HCPCS: 11055

== ENCOUNTER 2018-10-29 13:09 | Outpatient (CLI) | payer MEDICARE, OTHER ==
[2015-04-17 10:58] VITALS: BP 152/76
--- NOTE | 2018-11-12 19:53 | OP Clinic Progress Note ---
SUBJECTIVE: Shirlene Hatch is a 77-year-old female presenting to the clinic today for follow-up of a left third toe ulcer. She has been using a newly purchased total toe silicone sleeve. She has sometimes been using the Crest pad as well. She is stating that she would like to consider surgery perhaps in the near future. She denies any concerns or complaints at this time except that her left third toe is hurting some of the time. She does not admit to any fevers, chills, nausea, vomiting, shortness of breath or chest pain at this time. She does admit that her cardiology is Dr. Dumont and she has been worked up for any heart conditions in the past and that is who we would need to speak with if we wanted to consider doing surgery at any time in the near future. OBJECTIVE: Vitals: Temperature 97.8 degrees Fahrenheit, heart rate 75, respiration rate 20, blood pressure 141/65, O2 saturation is 97% on room air. Vascular: 2+ DP and PT pulses, left foot. Capillary refill time is less than 3 seconds to the toes of the left foot. Capillary refill time is even immediate to the left second toe, and third toe. There is no edema noted, left foot. Dermatologic: There is a small hyperkeratotic lesion on the distal tip of the left third toe which was debrided today that revealed still a very small superficial ulcer. There is no erythema, purulence or malodor noted about the small wound. There are no other concerning areas or lesions on the left foot. Musculoskeletal: There is digital deformity noted of the left second, third and fourth toes. They are dorsally contracted at the MPJ and plantar flexor contraction at the PIPJ and DIPJ specifically of the third toe, left foot. The patient has minor pain on palpation noted on the tip of the third toe, left foot. The patient is unable to obtain a rectus toe with the forefoot loaded as I try and extend the DIPJ of the left third toe. I worry this still will not be able to be fixed with just a FDL tenotomy. If the patient decides to go forward with surgery will likely need to do an osseous procedure unless they want to at least try the FDL tenotomy first to see if it works. Neurologic: Light touch sensation is intact to the toes bilaterally. ASSESSMENT AND PLAN: 1. Skin ulcer of the toe of the left foot with fat layer exposed. 2. Hammertoe, left foot. 3. Healing wound. PROCEDURE #1: Sharp debridement of a hyperkeratotic lesion mainly of the left third toe distal tip was performed today. The wound was so superficial I would not count this as a wound debridement at this time. The patient tolerated the procedure well. Triple antibiotic and a Band-Aid were applied. The patient was encouraged to continue using her total toe silicone sleeve as well as a Crest pad to help keep this offloaded. She tends to rest the tips of her toes on the ground and that is why we are trying to get her in the silicone sleeve to try and help her by protecting the tip of the toe as well. The patient has no further questions or concerns. She states that she would to maybe consider surgery in the near future. I told her that we will try this a little more and see if it improves. If it does not improve we will need to consider surgical treatment and we will need to speak with her family about that. The patient understands this. One concern I have is that she has had a small bit of maceration on the lateral aspect of the left third toe likely due to being in a silicone total toe sleeve where it gets a little sweaty. We will have to keep an eye on that and look at that next time. The patient would like to follow up in 3 weeks instead of 2. I feel okay about that at this time as the wound is so tiny and we most recently saw her 3 weeks ago as well. The patient will return to the clinic in 3 weeks for a follow-up. If we decide that she is not improving, then we will discuss FDL tenotomy versus arthrodesis of the PIPJ. Álvaro HollisP.M. (Dictated/Not Signed) Everette Job#: [id number] MTDD
== END 2018-10-29 13:10 ==
LOC: POD 13:09
PROVIDERS: ATTEND Podiatrist Foot & Ankle Surgery
DX: L97.522 Non-pressure chronic ulcer of other part of left foot with fat layer exposed (principal); M20.42 Other hammer toe(s) (acquired), left foot; L85.8 Other specified epidermal thickening
CPT/HCPCS: 11055; 99212; A4554

== ENCOUNTER 2018-12-03 13:02 | Outpatient (CLI) | payer MEDICARE, OTHER ==
[2015-04-17 10:58] VITALS: BP 152/76
== END 2018-12-03 13:25 ==
LOC: POD 13:02
PROVIDERS: ATTEND Podiatrist Foot & Ankle Surgery
DX: L97.529 Non-pressure chronic ulcer of other part of left foot with unspecified severity (principal); M89.372 Hypertrophy of bone, left ankle and foot
CPT/HCPCS: 99213

== ENCOUNTER 2018-12-17 12:48 | Outpatient (CLI) | payer MEDICARE, OTHER ==
[2015-04-17 10:58] VITALS: BP 152/76
--- NOTE | 2018-12-25 08:02 | OP Clinic Progress Note ---
DATE OF VISIT: 12/17/2018 SUBJECTIVE: Shirlene Hatch is an 78-year-old female presenting to the clinic today with her son for a left third toe distal tip ulcer. She has been having this toe ulcer that is repeated a couple times and continues to get hyperkeratotic lesion on the end which creates an ulcer. She had the ulcer most recently at her last visit a couple weeks ago and she is here for follow-up. She does not admit to any major issues but overall she is having some shoulder and arm problems which the son is aware of and they are working on trying to get that figured out, I believe. The patient otherwise does not admit to any fevers, chills, nausea, vomiting, shortness of breath or chest pain. OBJECTIVE: Vitals: Temperature 98.8 degrees Fahrenheit, heart rate 90, respiration rate 18, blood pressure 148/63, O2 saturation is 92% on room air. Vascular: Palpable pulses, DP and PT, left foot. These are very mild. Capillary refill time is less than 3 seconds to the toes of the left foot. There is no edema noted to the toes, left foot. Dermatologic: There is a hyperkeratotic lesion noted on the distal tip of the left third toe. This was debrided down to either a completely closed with very thin epithelium location or very pinpoint ulcer remaining. It was hard to determine today but it does seem to be healed. There is no erythema, purulence or malodor or drainage noted of any kind. There are no other skin lesions or concerning areas. Hyperkeratotic lesion noted sub first metatarsal head. Debrided to intact tissue today. Musculoskeletal: There is digital contracture noted of the left third toe causing a pressure spot on the distal tip of the toe where it hits the ground. The patient also tends to tap her feet on the ground with her toes uncontrollably. There are no other gross abnormalities noted. Neurologic: Light touch sensation is diminished to the toes, left foot. ASSESSMENT AND PLAN: 1. Hyperkeratotic lesion, left sub first metatarsal head. 2. Left third toe distal tip ulcer healed. 3. Hammertoe contracture left third toe. PROCEDURE #1: Paring of 2 calluses/hyperkeratotic lesions with a #15 blade was performed today without incident of the sub first metatarsal head as well as distal tip of the left third toe, without incident. The patient is to continue using a Crest pad and total silicone sleeve to the third toe, left foot. The patient tolerated the procedure well. A dry Band-Aid was applied today for safety over that left third toe. Return to the clinic in 3 weeks. We will see how the patient does pushing her out a little further to see if this lesion continues to heal and we will see how often we need to see her for debridement of the calluses. The son in the room would prefer that we avoid surgery if we can completely and we will see if we can see her hopefully just for callus treatment if we can keep her wound free from being there. Álvaro HollisPAlexandraM. (Dictated/Not Signed) Everette Job#: [id number] MTDD
== END 2018-12-17 13:05 ==
LOC: POD 12:48
PROVIDERS: ATTEND Podiatrist Foot & Ankle Surgery
DX: L85.8 Other specified epidermal thickening (principal); M20.42 Other hammer toe(s) (acquired), left foot
CPT/HCPCS: 11055; 99213

== ENCOUNTER 2019-01-07 13:04 | Outpatient (CLI) | payer MEDICARE, OTHER ==
[2015-04-17 10:58] VITALS: BP 152/76
--- NOTE | 2019-01-11 15:07 | OP Clinic Progress Note ---
DATE OF VISIT: 01/07/2019 SUBJECTIVE: Shirlene Hatch is an 78-year-old female presenting to clinic with her son in the room today. She is here for a left third toe distal tip ulcer that was pretty much closed 3 weeks ago. The patient is doing well but would like her toenails trimmed as she is unable to do it on her own as well. She does not admit to any fevers, chills, nausea, vomiting, shortness of breath or chest pain. OBJECTIVE: Vitals: Temperature 97.7 degrees Fahrenheit, heart rate 79, blood pressure 135/74. O2 saturation is 96% on room air. Vascular: Palpable DP and PT pulses, left and right feet; these are 2+. Capillary refill time is less than 3 seconds to the toes of bilateral feet. There is no edema noted in bilateral feet. Dermatologic: There is a hyperkeratotic lesion noted on the distal tip of the left third toe and sub first metatarsal head. These were debrided with a #15 blade to intact skin. There is a very thin layer of intact epithelium over the previous wound of the left third toe, distal tip, which was left intact. This looks great, however, and has no erythema, ecchymosis or signs of drainage, warm or any signs of infection. This looks fantastic. The area debrided under the first metatarsal head is also good, strong healthy skin after debridement. Musculoskeletal: There is a digital contracture noted of the left third toe that is causing a pressure spot on the distal tip where the toe hits the ground. The patient again does tend to tape her feet on the ground with her toes uncontrollably and this is causing some extra pressure on the end of the toes as well. Neurologic: Light touch sensation is diminished to the toes, left foot. ASSESSMENT AND PLAN: 1. Hyperkeratotic lesion, left sub first metatarsal head and left third toe distal tip. 2. Hammertoe contracture of the left third toe. PROCEDURE #1: Paring of 2 calluses/hyperkeratotic lesions with a #15 blade were performed today without incident of the sub first metatarsal head left foot as well as distal tip of the left third toe without incident. The patient is to continue the Crest pad and total silicone sleeve to the entire toes of the left foot. She is also to continue using a Band-Aid on the tip of the toe in order to give it an extra layer of protection. She does not need any antibiotic ointment at this time. A dry Band-Aid was applied today. The patient would like to continue doing another visit in 3 weeks to make sure things continue to be okay and that the calluses do not become too large. We will plan on seeing her in 3 weeks for follow-up and making sure that we can keep these calluses in check without any wounds developing. Perhaps we will consider a month follow-up after that visit. PROCEDURE #2: Trimming of toenails #1 through #5 bilateral feet was performed today without incident. The patient will return to the clinic in 3 weeks for follow-up. Álvaro HollisPAlexandraMAlexandra (Dictated/Not Signed) Everette Job#: [id number] MTDD
== END 2019-01-07 13:34 ==
LOC: POD 13:04
PROVIDERS: ATTEND Podiatrist Foot & Ankle Surgery
DX: L85.1 Acquired keratosis [keratoderma] palmaris et plantaris (principal); M20.42 Other hammer toe(s) (acquired), left foot

== ENCOUNTER 2019-01-28 12:54 | Outpatient (CLI) | payer MEDICARE, OTHER ==
[2015-04-17 10:58] VITALS: BP 152/76
--- NOTE | 2019-02-02 12:16 | OP Clinic Progress Note ---
DATE OF VISIT: 01/28/2019 SUBJECTIVE: Shirlene Hatch is a pleasant 78-year-old female presenting to clinic today for follow up of a left third toe distal tip previous ulcer that has been returning as only a callus recently. The patient also has a sub first metatarsal head hyperkeratosis on the left foot that occasionally needs treatment as well. The patient is presenting here with her granddaughter today. She does not admit to any fever, chills, nausea, vomiting, shortness of breath or chest pain. She admits that her left third toe is feeling a lot better and has very mild pain only. OBJECTIVE: Vitals: Temperature 98.8 degrees Fahrenheit, heart rate 83, respiration rate 16, blood pressure 138/67. O2 saturation is 95% on room air. Vascular: Palpable DP and PT pulses, left foot. Capillary refill time is less than 3 seconds to the toes left foot. There is moderate edema noted bilateral lower extremities, this is different from last time. Dermatologic: There is a hyperkeratotic lesion on the distal tip of the left third toe debrided down to leaving a very thin layer of hyperkeratosis over a slightly red discoloration underneath. I believe that this can be taken down to her wound, but we are leaving it intact with a small amount of callus to keep it protected at this time. It is still being debrided to a very appropriate manner. There is no erythema or drainage or any signs or infection noted. There is a very mild hyperkeratosis noticed in the first metatarsal head left foot, which is left alone today. There are no other concerning skin lesions noted left foot. Right foot was not visualized today. There is very mild red irritation with an eczema type appearance noted on the distal lower leg and proximal foot near the gaiter region of the ankle and proximal foot. There are no open lesions noted, however. Musculoskeletal: There is digital contraction noted of the left third toe with plantar flexion, contracture at the DIPJ and PIPJ. The patient does tend to point her feet downward on the ground tapping her toes uncontrollably and this causes extra pressure too. There is no pain with calf squeeze of the left lower extremity. Neurologic: Light touch sensation is diminished to the toes, left foot. ASSESSMENT AND PLAN: 1. Hyperkeratosis of the left third toe distal tip and left sub first metatarsal head. 2. 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 3. Eczema versus dermatitis of the gaiter region of the left ankle. PROCEDURE #1: Paring of callus x1 left third toe distal tip with a #15 blade today. A small layer of callus was left intact to protect the toe. This will continue to be monitored carefully. A Band-Aid only was applied. The patient is to keep the Band-Aid on the end of it for protection as well as her normal silicone total toe sleeve and Crest pad to keep the toe off the ground the best we can. She is healing and improving overall very well. As she is improving we can try and put her out a little further out than three weeks and see how the calluses are at that time. Return to the clinic in one month and follow up on the toe distal tip callusing as well as consider how well the gaiter region of the ankle and proximal foot is doing. If it continues to have redness the patient was notified to let us know sooner than later as well as if she develops any sort of wounds. She has increased swelling today and she was encouraged to begin compression stockings in order to prevent any ulcerations from happening. We will consider TAC cream at her next visit if she is not improving. Return to the clinic again in one month and we will follow up on those things above. Seven Hollis.P.M.(Dictated/not signed) /Accutype [id number] /mab MTDD
== END 2019-01-28 13:14 ==
LOC: POD 12:54
PROVIDERS: ATTEND Podiatrist Foot & Ankle Surgery
DX: L85.9 Epidermal thickening, unspecified (principal); M20.42 Other hammer toe(s) (acquired), left foot
CPT/HCPCS: 11055; 99213; G0463; A4554

== ENCOUNTER 2019-03-11 12:39 | Outpatient (CLI) | payer MEDICARE, OTHER ==
[2015-04-17 10:58] VITALS: BP 152/76
--- NOTE | 2019-03-15 15:27 | OP Clinic Progress Note ---
DATE OF VISIT: 03/11/2019 SUBJECTIVE: Shirlene Hatch is an 78-year-old female presenting to the clinic today for follow up of a left third toe distal tip hyperkeratosis. The patient has been using a silicone toe sleeve as well as crest pad to try and keep pressure off the toe as much as possible. We have not seen her for five weeks. She does not admit to any issues except for some pain on the distal tip of that third toe. She does not admit to any fevers, chills, nausea, vomiting, shortness of breath or chest pain or pain elsewhere. She also has a history of a small callus underneath the first metatarsal head, left foot. OBJECTIVE: Vitals: Temperature 96.9 degrees Fahrenheit, heart rate 73, blood pressure 134/65. O2 saturation is 99% on room air. No respiration rate was recorded today. Vascular: Palpable DP and PT pulses, left foot. Capillary refill time is less than 3 seconds to the toes of the left foot. There is no real edema noted in the left foot. Dermatologic: There is no erythematous or red blotching like there was last visit around the ankle. That irritation with an eczema type appearance is no longer present. The left third toe distal tip has a large hyperkeratotic lesion noted, which upon debridement still had intact skin, but it was close to creating a wound. There is no erythema or malodor or purulence or fluctuance of any kind noted suggesting signs of infection. There are no other concerning areas of the skin left foot. Musculoskeletal: There is a digital contracture noted of the left third toe with plantar flexion and contracture at the DIPJ and PIPJ. The patient frequently taps her foot on the ground, which is what is described from her family member on the previous visit. There is pain on palpation noted at the left third toe distal tip area. Neurologic: Light touch sensation is diminished to the toes, left foot. ASSESSMENT AND PLAN: 1. Hyperkeratosis of the left third toe distal tip and left sub-first metatarsal heads. 2. 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 PROCEDURE #1: Debridement of the hyperkeratotic corns and calluses two through four left foot was performed without incident. The patient tolerated this well. There was no need for any sort of dressings. We will likely need to see the patient less than five weeks from now as she developed a very large callus and near ulcer during five weeks. We will plan on seeing the patient for a return to clinic visit in four weeks from now where we will debride the callus. If we cannot keep this under control we may consider surgical correction of the hammertoe, but if at all possible we will just continue debriding every month as needed. It appears that we will need to see her every four weeks to take care of this in order to protect it. This is despite efforts to offload as much as possible. Álvaro HollisPAlexandraM.(Dictated/not signed) /Accutype [id number] /mab MTDD
== END 2019-03-11 13:10 ==
LOC: POD 12:39
PROVIDERS: ATTEND Podiatrist Foot & Ankle Surgery
DX: L85.1 Acquired keratosis [keratoderma] palmaris et plantaris (principal); M20.42 Other hammer toe(s) (acquired), left foot
CPT/HCPCS: 11056; 99212; G0463

== ENCOUNTER 2019-04-15 13:33 | Outpatient (CLI) | payer MEDICARE, OTHER ==
[2015-04-17 10:58] VITALS: BP 152/76
--- NOTE | 2019-04-20 10:32 | OP Clinic Progress Note ---
DATE OF VISIT: 04/15/2019 SUBJECTIVE: Shirlene presents to the clinic today for follow up of a left third toe distal tip hyperkeratosis and very mild hyperkeratosis underneath the first metatarsal head left foot and long toenails. The patient hadnt been seen for quite awhile and we were most recently gauging how long she can go without a visit for appropriate debridement of callus on the distal toe tip of the left third toe and also underneath the first metatarsal head and it has been five weeks since our last visit and she has moderate hyperkeratosis noted. I believe that we can safely go six weeks. The patient is here for trimming as well as a toenail trim if needed. The patient does not admit to any fevers, chills, nausea, vomiting, shortness of breath or chest pain. She states she is feeling great today. OBJECTIVE: Vitals: Temperature 98.0 degrees Fahrenheit, heart rate 82, respiration rate 16, blood pressure 138/65. O2 saturation is 96% on room air. Vascular: 2+ DP and PT pulses are palpated today bilaterally. Capillary refill time is less than 3 seconds to the toes bilaterally. There is no edema noted bilaterally. Dermatologic: There is a moderate callus distal left third toe distal tip. There is also a very minor hyperkeratotic lesion noted under the first metatarsal head of the left foot which was left alone today. The toenails are long and thick bilaterally. There are no other skin concerns or open lesions noted. It should be noted that upon debridement of the left third toe distal tip callus, it was debrided down to intact skin with slight dark red discoloration underneath which was left alone. There was no open lesion or raw tissue exposed. Musculoskeletal: There are still digital contractures noted especially at the left third toe with a claw toe type contracture, which is fairly rigid at the DIPJ. Neurologic: Light touch sensation is diminished, but intact to the toes left foot and right foot. ASSESSMENT AND PLAN: 1. Hyperkeratosis of the left third toe distal tip. 2. Hammertoe contracture of the left third toe. 3. Dermatophytosis of the nails bilaterally. PROCEDURE #1: Paring of hyperkeratotic tissue lesion left third toe distal tip with a #15 blade was performed today without incident. The patient tolerated the procedure well. PROCEDURE #2: Trimmed the toenails one through five bilateral feet without incident. The patient also tolerated this well. The patient is to continue padding the left third toe with the entire toe silicone pad as well as lifting the tip with a crest pad, which she had both with her today and they were reapplied at the end of the visit again. She is wearing them well. Return to clinic in six weeks at the [facility]. She states she will call and make that appointment for six weeks from now where we will trim the calluses and then make another appointment for six weeks after that for nails. We will see her at that point every three months for nails and callus and every six weeks for callus. The patient has no further questions or concerns. We will see her in six weeks. Seven Hollis.P.M. (Dictated/not signed) /Accutype [id number] /mab MTDD
== END 2019-04-15 13:53 ==
LOC: POD 13:33
PROVIDERS: ATTEND Podiatrist Foot & Ankle Surgery
DX: L85.9 Epidermal thickening, unspecified (principal); M20.42 Other hammer toe(s) (acquired), left foot; B35.8 Other dermatophytoses
CPT/HCPCS: 11055; 11719; 99212; G0463; A4554